=== PATIENT | male | born 1970 | race African-American/Black ===

== ENCOUNTER 2023-01-01 11:00 | Emergency (ER) | payer BC ==
[~2023-01-01] VITALS: Ht 177.8 cm; Wt 152.0 kg
--- NOTE | 2023-01-01 11:15 | NUR ---
PATIENT CAME WITH C/O HIGH BLOOD PRESSURE,PLACED ON BED,ATTACHED TO MONITOR ,ALERT AND ORIENTED ,ON ROOM AIR.
--- NOTE | 2023-01-01 12:18 | NUR ---
SEND COVID SWAB AND INFLUENZA SAMPLE.
[2023-01-01 12:24] LABS: BASOPHILS # (AUTO) 0.1 K/uL (0.0-0.2); BASOPHILS % (AUTO) 0.8 % (0.0-2.0); EOSINOPHILS % (AUTO) 1.2 % (0.0-6.0); HEMATOCRIT 40 % (39-51); HEMOGLOBIN 12.6 g/dL (13.5-17.5); LYMPHOCYTES # (AUTO) 1.5 K/uL (0.8-4.8); LYMPHOCYTES % (AUTO) 25.1 % (20.0-44.0); MEAN CORPUSCULAR HGB CONC 32 g/dl (31.0-36.0); MEAN CORPUSCULAR VOLUME 82 fL (80-96); MONOCYTES # (AUTO) 0.5 K/uL (0.1-1.30); MONOCYTES % (AUTO) 8.2 % (2.0-12.0); NEUTROPHILS % (AUTO) 64.7 % (43.0-81.0); PLATELET COUNT (AUTO) 192 K/uL (150-450); WHITE BLOOD COUNT (AUTO) 6.1 K/uL (4.3-11.0)
[2023-01-01 12:31] LABS: CARBON DIOXIDE 28 mmol/L (21-32); CHLORIDE 106 mmol/L (98-107); GLUCOSE 120 mg/dL (74-106); POTASSIUM 4.1 mmol/L (3.5-5.1); SODIUM SERUM 140 mmol/L (136-145); UREA NITROGEN, BLOOD 13 mg/dL (7-18)
--- NOTE | 2023-01-01 15:01 | NUR ---
Patient discharged to home in stable condition. Written and verbal after care instructions given. Patient verbalizes understanding of instruction.
[2023-01-01 15:02] VITALS: BP 142/94; TEMP 99.6
== END 2023-01-01 15:02 | disposition home or self-care (01) ==
LOC: ER 11:29
DX: I10 Essential (primary) hypertension (principal); I48.91 Unspecified atrial fibrillation; Z20.822 Contact with and (suspected) exposure to COVID-19
CPT/HCPCS: 99285; 71045; 87426; 93005; 87804 ×2; 85025; 80048; 36415; 84484; 83880; C9803

== ENCOUNTER 2023-05-29 16:32 | Emergency (ER) | payer BC ==
[~2023-05-29] VITALS: Ht 177.8 cm; Wt 147.4 kg
[2023-05-29 16:48] VITALS: TEMP 98.4
[2023-05-29 17:16] LABS: BASOPHILS % (AUTO) 0.6 % (0.0-2.0); EOSINOPHILS # (AUTO) 0.1 K/uL (0.0-0.7); EOSINOPHILS % (AUTO) 1.1 % (0.0-6.0); HEMATOCRIT 41 % (39-51); HEMOGLOBIN 13.4 g/dL (13.5-17.5); LYMPHOCYTES # (AUTO) 1.9 K/uL (0.8-4.8); LYMPHOCYTES % (AUTO) 22.2 % (20.0-44.0); MEAN CORPUSCULAR HEMOGLOBIN 26 PG (26.0-33.0); MEAN CORPUSCULAR HGB CONC 33 g/dl (31.0-36.0); MEAN CORPUSCULAR VOLUME 80 fL (80-96); MONOCYTES # (AUTO) 0.5 K/uL (0.1-1.30); NEUTROPHILS % (AUTO) 70.1 % (43.0-81.0); PLATELET COUNT (AUTO) 199 K/uL (150-450); RED BLOOD CELL COUNT(AUTO) 5.11 MIL/uL (4.5-6.0); RED CELL DISTRIBUTION WIDTH 15.3 % (11.5-15.0); WHITE BLOOD COUNT (AUTO) 8.6 K/uL (4.3-11.0)
[2023-05-29 17:24] LABS: CALCIUM, SERUM 8.9 mg/dL (8.5-10.1); CARBON DIOXIDE 27 mmol/L (21-32); CHLORIDE 102 mmol/L (98-107); CREATININE 1.1 mg/dL (0.6-1.3); GLUCOSE 134 mg/dL (74-106); POTASSIUM 3.7 mmol/L (3.5-5.1); SODIUM SERUM 136 mmol/L (136-145); UREA NITROGEN, BLOOD 15 mg/dL (7-18)
[2023-05-29] MEDS ORDERED: hydrALAZINE HCL IV 20 MG VIAL ONE (18:12)
[2023-05-29 18:29] VITALS: BP 144/80; O2SAT 98
[2023-05-29] MEDS ORDERED: hydrALAZINE HCL IV 20 MG VIAL IV ONE (18:30)
== END 2023-05-29 18:30 | disposition home or self-care (01) ==
LOC: ER 16:32
DX: I10 Essential (primary) hypertension (principal); R07.89 Other chest pain; I48.91 Unspecified atrial fibrillation
CPT/HCPCS: 99285; 96374; 71045; 93005 ×2; 85025; 80048; 36415; 84484; J0360